=== PATIENT | female | born 1990 | race Caucasian/White ===

== ENCOUNTER 2017-08-26 19:15 | Emergency (ER) | payer OTHER ==
--- NOTE | 2017-08-26 19:21 | ED PDOC ---
Arrival/HPI - General Time Seen by Provider: 08/26/17 19:20 Historian: Patient - History of Present Illness Narrative History of Present Illness (Text): 08/26/17 19:21 26 y/o female, no significant pmh, nkda, c/o fever/nausea/vomiting/diarrhea with bodyache started today. Tmax 102F, no antipyretic taken for the past 8 hours, stated that she has nausea/vomiting with couple episodes of watery diarrhea with no abdominal pain, no cough,no palpitation, no recent traveling, no antibiotic use for the past 6 weeks, no numbness or tingling, no numbness or tingling, no other medical or psychological complaints. Past Medical History - Provider Review Nursing Documentation Reviewed: Yes Family/Social History - Physician Review Nursing Documentation Reviewed: Yes Family/Social History: Unknown Family HX Allergies/Home Meds Allergies/Adverse Reactions: Allergies No Known Allergies Allergy (Verified 08/26/17 19:22) Review of Systems - Review of Systems Constitutional: absent: Fatigue, Fevers Eyes: absent: Vision Changes ENT: absent: Hearing Changes Respiratory: absent: SOB, Cough Cardiovascular: absent: Chest Pain Gastrointestinal: Diarrhea, Nausea, Vomiting. absent: Abdominal Pain Skin: absent: Rash, Pruritis Neurological: absent: Headache Psychiatric: absent: Anxiety, Depression Physical Exam Vital Signs Reviewed: Yes Vital Signs Temp Pulse Resp BP Pulse Ox 08/26/17 23:17 99.4 F 90 16 106/68 95 08/26/17 21:56 99 F 107 H 16 159/85 H 97 08/26/17 19:22 100 F H 112 H 18 107/71 Temperature: Afebrile Blood Pressure: Normal Pulse: Tachycardic Respiratory Rate: Normal Appearance: Positive for: Well-Appearing, Non-Toxic, Comfortable Pain Distress: Moderate Mental Status: Positive for: Alert and Oriented X 3 - Systems Exam Head: Present: Atraumatic, Normocephalic Pupils: Present: PERRL Extroacular Muscles: Present: EOMI Conjunctiva: Present: Normal Ears: Present: NORMAL TM, Normal Canal. No: Erythema Mouth: Present: Moist Mucous Membranes Pharnyx: No: ERYTHEMA, EXUDATE, TONSILS ENLARGED, Uvular Deviation Nose (External): Present: Atraumatic. No: Abrasion, Contusion Nose (Internal): Present: Normal Inspection, No Active Bleeding. No: Rhinorrhea , Septal Hematoma, Epistaxis Neck: Present: Normal Range of Motion, Trachea Midline. No: Meningeal Signs, MIDLINE TENDERNESS, Paraspinal Tenderness, Lymphadenopathy Respiratory/Chest: Present: Clear to Auscultation, Good Air Exchange. No: Respiratory Distress, Accessory Muscle Use Cardiovascular: Present: Regular Rate and Rhythm, Normal S1, S2. No: Murmurs Abdomen: Present: Normal Bowel Sounds. No: Tenderness, Distention, Peritoneal Signs, Rebound, Guarding, Scars Back: Present: Normal Inspection Upper Extremity: Present: Normal Inspection. No: Cyanosis, Edema Lower Extremity: Present: Normal Inspection. No: Edema Neurological: Present: GCS=15, Speech Normal, Motor Func Grossly Intact, Gait Normal, Memory Normal Skin: Present: Warm, Dry, Normal Color. No: Rashes Psychiatric: Present: Alert, Oriented x 3, Normal Insight, Normal Concentration Medical Decision Making ED Course and Treatment: 08/26/17 19:42 -Labs/rapid flu -IVF/tylenol -Observe and reassess 08/26/17 22:13 -Motrin and IVF ordered. 08/26/17 23:09 -Urine hcg negative -Labs are non-significant except mild hypokalemia with potassium chloride 20meq po ordered. -UA show no UTI -Rapid flu is negative but clinical suspicious is high, tamiflu ordered -Abdominal examination is soft with no tenderness or guarding. No neck pain or stiffness. -Discharge home with tamiflu, pepcid, zofran, bed rest, BRAT diet, follow up with your own pmd and GI within 2 days, return to the ER for any new or worsening signs or symptoms. - Lab Interpretations Lab Results: 08/26/17 20:00 08/26/17 20:00 Lab Results 08/26/17 20:00: WBC 6.5, RBC 4.96, Hgb 14.2, Hct 42.0, MCV 84.7, MCH 28.6, MCHC 33.8, RDW 13.1, Plt Count 304, MPV 9.7, Gran % 73.5 H, Lymph % (Auto) 20.0 L, Butts % (Auto) 5.8, Eos % (Auto) 0.5 L, Baso % (Auto) 0.2, Gran # 4.81, Lymph # 1.3, Butts # 0.4, Eos # 0.0, Baso # 0.01 08/26/17 20:00: Sodium 134, Potassium 3.5 L, Chloride 98, Carbon Dioxide 26, Anion Gap 14, BUN 16, Creatinine 0.6 L, Est GFR ( Amer) > 60, Est GFR ( Non-Af Amer) > 60, Random Glucose 114 H, Calcium 9.2, Total Bilirubin 0.6, AST 36, ALT 59 H, Alkaline Phosphatase 80, Total Protein 7.8, Albumin 4.3, Globulin 3.5, Albumin/Globulin Ratio 1.2 08/26/17 20:00: Urine Color Yellow, Urine Appearance Clear, Urine pH 7.5, Ur Specific [place] 1.020, Urine Protein Trace H, Urine Glucose (UA) Negative, Urine Ketones Negative, Urine Blood Negative, Urine Nitrate Negative, Urine Bilirubin Negative, Urine Urobilinogen 1.0 H, Ur Leukocyte Esterase Negative, Urine RBC 0 - 2, Urine WBC 1 - 3, Ur Epithelial Cells 0 - 2, Urine Bacteria Small 08/26/17 19:50: Influenza Typ A,B (EIA) Negative for flu a/b - Medication Orders Current Medication Orders: Discontinued Medications Acetaminophen (Tylenol 325mg Tab) 650 mg PO STAT STA Stop: 08/26/17 19:39 Last Admin: 08/26/17 20:15 Dose: 650 mg MAR Pain/Vitals Document 08/26/17 20:15 HI (Rec: 08/26/17 20:39 [facility] [id number]) Pain Reassessment Is This A Pain ReAssessment? No Sodium Chloride (Sodium Chloride 0.9%) 1,000 mls @ 999 mls/hr IV .Q1H1M STA Stop: 08/26/17 20:38 Last Admin: 08/26/17 20:15 Dose: 999 mls/hr eMAR Start Stop Document 08/26/17 20:15 HI (Rec: 08/26/17 20:39 [id number] Intravenous Solution Start Date 08/26/17 Start Time 20:15 Sodium Chloride (Sodium Chloride 0.9%) 500 mls @ 999 mls/hr IV .Q31M STA Stop: 08/26/17 22:40 Last Admin: 08/26/17 22:33 Dose: 999 mls/hr eMAR Start Stop Document 08/26/17 22:33 HI (Rec: 08/26/17 22:33 [facility] [id number]) Intravenous Solution Start Date 08/26/17 Start Time 22:33 Ibuprofen (Motrin Tab) 600 mg PO STAT STA Stop: 08/26/17 22:12 Last Admin: 08/26/17 22:33 Dose: 600 mg MAR Pain/Vitals Document 08/26/17 22:33 HI (Rec: 08/26/17 22:33 [facility] [id number]) Pain Reassessment Is This A Pain ReAssessment? No Oseltamivir Phosphate (Tamiflu Cap) 75 mg PO STAT STA PRN Reason: Protocol Stop: 08/26/17 20:44 Last Admin: 08/26/17 21:20 Dose: 75 mg Potassium Chloride (K-Dur 20 Meq Er Tab) 20 meq PO STAT STA Stop: 08/26/17 20:46 Last Admin: 08/26/17 21:20 Dose: 20 meq - PA / MANAGER TALENT / Resident Statement MD/DO has reviewed & agrees with the documentation as recorded. Disposition/Present on Arrival - Present on Arrival Any Indicators Present on Arrival: No History of DVT/PE: No History of Uncontrolled Diabetes: No Urinary Catheter: No History of Decub. Ulcer: No - Disposition Have Diagnosis and Disposition been Completed?: Yes Diagnosis: Nausea vomiting and diarrhea, Flu-like symptoms Disposition: HOME/ ROUTINE Disposition Time: 23:09 Patient Plan: Discharge Condition: IMPROVED Additional Instructions: -Discharge home with tamiflu, pepcid, zofran, bed rest, BRAT diet, follow up with your own pmd and GI within 2 days, return to the ER for any new or worsening signs or symptoms. Prescriptions: Famotidine [Pepcid] 20 mg PO BID #14 tab Ondansetron [Zofran] 4 mg PO Q8H #8 tab Oseltamivir Phosphate [Tamiflu] 75 mg PO BID #10 capsule Referrals: Jeremiah Arshad MD [Primary Care Provider] - Follow up with primary Ayo GALLARDO,MD Kay [Medical Doctor] - Follow up with primary Forms: WORK NOTE
[2017-08-26] MEDS ORDERED: Sodium Chloride 0.9% 1,000 ML IV STA (19:38)
[2017-08-26 20:23] LABS: BASO # 0.01 K/mm3 (0.0-2.0); BASO % 0.2 % (0.0-3.0); EOS % 0.5 % (1.5-5.0); GRAN # 4.81 (1.4-6.5); GRAN % 73.5 % (50.0-68.0); HEMOGLOBIN 14.2 g/dL (12.0-16.0); LYMPH # 1.3 (1.2-3.4); MEAN CELL VOLUME 84.7 fl (80.0-105.0); MEAN CORPUSCULAR HEMOGLOBIN 28.6 pg (25.0-35.0); MEAN CORPUSCULAR HGB CONC 33.8 g/dl (31.0-37.0); MEAN PLATELET VOLUME 9.7 fl (7.0-11.0); MONO # 0.4 (0.1-0.6); MONO % 5.8 % (1.0-6.0); RBC 4.96 10^6/uL (3.5-6.1); RED CELL DISTRIBUTION WIDTH 13.1 % (11.5-14.5); WHITE BLOOD COUNT 6.5 10^3/ul (4.5-11.0)
[2017-08-26 20:24] LABS: PH,URINE 7.5 (4.7-8.0); URINE BILIRUBIN NEGATIVE (NEGATIVE); URINE BLOOD NEGATIVE (NEGATIVE); URINE GLUCOSE (UA) NEGATIVE (NEGATIVE); URINE LEUKOCYTE ESTERASE NEGATIVE Leu/uL (NEGATIVE); URINE NITRATE NEGATIVE (NEGATIVE); URINE PROTEIN TRACE mg/dL (<30 mg/dL)
[2017-08-26 20:31] LABS: ALB/GLOB RATIO 1.2 (1.1-1.8); ALBUMIN 4.3 g/dL (3.0-4.8); ALT/SGPT 59 U/L (7-56); AST/SGOT 36 U/L (14-36); BLOOD UREA NITROGEN 16 mg/dL (7-21); CALCIUM 9.2 mg/dL (8.4-10.5); GFR AFRICAN-AMERICAN > 60; GFR NON-AFRICAN AMERICAN > 60
[2017-08-26 20:33] LABS: URINE APPEARANCE CLEAR (CLEAR); URINE COLOR YELLOW (YELLOW)
[2017-08-26] MEDS ORDERED: Potassium Chloride 20 mEq ER Tab PO STA (20:45)
[2017-08-26 20:54] LABS: URINE BACTERIA SMALL (NEG); URINE EPITHELIAL CELLS 0 - 2 /hpf (0-5); URINE RBC 0 - 2 /hpf (0-2)
[2017-08-26 21:57] VITALS: RESP 16
[2017-08-26] MEDS ORDERED: Sodium Chloride 0.9% 500 ML IV STA (22:10)
[2017-08-26 23:18] VITALS: BP 106/68; PULSE 90; TEMP 99.4; O2SAT 95
== END 2017-08-26 23:22 | disposition home or self-care (01) ==
LOC: ED 19:15
DX: J11.1 Influenza due to unidentified influenza virus with other respiratory manifestations (principal); R11.2 Nausea with vomiting, unspecified; R19.7 Diarrhea, unspecified
CPT/HCPCS: 80053; 81001; 85025; 87804; 99284; J7040

== ENCOUNTER 2017-09-25 11:28 | Emergency (ER) | payer OTHER ==
[2017-09-25 11:41] VITALS: TEMP 98.6; BMI 24.5
--- NOTE | 2017-09-25 12:13 | ED PDOC ---
Arrival/HPI - General Chief Complaint: Abdominal Pain Time Seen by Provider: 09/25/17 11:47 Historian: Patient - History of Present Illness Narrative History of Present Illness (Text): 09/25/17 12:12 Krystyna Brock is a 26 year old female (), with no significant past medical history, who presents to the emergency department with lower abdominal pain with associated diarrhea. Patient notes her last menstrual period was5 weeks ago. Patient describes her pain as a pressure. Patient denies any fever, chills, chest pain, shortness of breath, nausea, vomiting, back pain, neck pain , headache, dizziness or any other complaints. 09/25/17 13:24 Time/Duration: < week Symptom Onset: Gradual Symptom Course: Unchanged Activities at Onset: Light Context: Home Past Medical History - Provider Review Nursing Documentation Reviewed: Yes - Cardiac Hx Cardiac Disorders: No - Pulmonary Hx Respiratory Disorders: No - Neurological Hx Neurological Disorder: No - HEENT Hx HEENT Disorder: No - Renal Hx Renal Disorder: No - Endocrine/Metabolic Hx Endocrine Disorders: No - Hematological/Oncological Hx Blood Disorders: No - Integumentary Hx Dermatological Disorder: No - Musculoskeletal/Rheumatological Hx Musculoskeletal Disorders: No - Gastrointestinal Hx Gastrointestinal Disorders: No - Genitourinary/Gynecological Hx Genitourinary Disorders: No - Psychiatric Hx Psychophysiologic Disorder: No Hx Substance Use: No - Surgical History Hx Dilation and Curettage: Yes Family/Social History - Physician Review Nursing Documentation Reviewed: Yes Family/Social History: Unknown Family HX Smoking Status: Light Smoker < 10 Cigarettes Daily Hx Alcohol Use: Yes Hx Substance Use: No Allergies/Home Meds Allergies/Adverse Reactions: Allergies No Known Allergies Allergy (Verified 09/25/17 11:41) Home Medications: Home Meds Medication Instructions Recorded Confirmed No Known Home Med 09/25/17 09/25/17 Review of Systems - Physician Review All systems were reviewed & negative as marked: Yes - Review of Systems Constitutional: Normal Eyes: Normal ENT: Normal Respiratory: Normal. absent: SOB, Cough Cardiovascular: Normal. absent: Chest Pain Gastrointestinal: Abdominal Pain, Diarrhea. absent: Nausea, Vomiting Genitourinary Female: Normal. absent: Dysuria, Frequency, Hematuria, Urine Output Changes Musculoskeletal: Normal. absent: Back Pain, Neck Pain Skin: Normal. absent: Rash Neurological: Normal. absent: Headache, Dizziness Endocrine: Normal Hemo/Lymphatic: Normal Psychiatric: Normal Physical Exam Vital Signs Temp Pulse Resp BP Pulse Ox 09/25/17 13:19 86 18 112/65 100 09/25/17 11:41 98.6 F 106 H 19 124/72 98 09/25/17 11:39 98.6 F 106 H 19 124/72 98 Temperature: Afebrile Blood Pressure: Normal Pulse: Tachycardic Respiratory Rate: Normal Appearance: Positive for: Well-Appearing, Non-Toxic, Comfortable Pain Distress: None Mental Status: Positive for: Alert and Oriented X 3 - Systems Exam Head: Present: Atraumatic, Normocephalic Pupils: Present: PERRL Extroacular Muscles: Present: EOMI Conjunctiva: Present: Normal Mouth: Present: Moist Mucous Membranes Neck: Present: Normal Range of Motion Respiratory/Chest: Present: Clear to Auscultation, Good Air Exchange. No: Respiratory Distress, Accessory Muscle Use Cardiovascular: Present: Regular Rate and Rhythm, Normal S1, S2. No: Murmurs Abdomen: Present: Tenderness (rigth adnexal tenderness), Normal Bowel Sounds. No: Distention, Peritoneal Signs Back: Present: Normal Inspection Upper Extremity: Present: Normal Inspection. No: Cyanosis, Edema Lower Extremity: Present: Normal Inspection. No: Edema Neurological: Present: GCS=15, CN II-XII Intact, Speech Normal Skin: Present: Warm, Dry, Normal Color. No: Rashes Psychiatric: Present: Alert, Oriented x 3, Normal Insight, Normal Concentration Medical Decision Making ED Course and Treatment: 09/25/17 12:21 Impression: 26 year old female presents to the emergency department with lower abdominal pain with diarrhea. pt found to be ucg pos in er. Plan: -- US transvaginal -- Beta HCG -- Labs -- HCG Qualitative Urine, Urinalysis -- Reassess and disposition Prior Visits: Notes and results from previous visits were reviewed. Patient was last seen in the emergency department on 08/26/17 for Nausea, vomiting, diarrhea. Patient was discharged home. Progress Notes: 09/25/17 13:17 UTERUS: Single Live intrauterine gestation. Yolk sac is visualized. pole is not identified on the current examination. Gestational sac diameter measures 0.76 cm too small to estimate gestational age. Dianelys-gestational hemorrhage: None. Uterus measures 7.0 x 5.0 x 5.3 cm. No mass CERVIX: Long and closed. No cervical abnormality seen. RIGHT OVARY: Measures 2.9 x 1.8 x 2.6 cm. No mass. Normal flow. There is a 1.5 cm simple cyst. LEFT OVARY: Measures 2.4 x 1.5 x 1.9 cm. No mass. Normal flow. FREE FLUID: None. OTHER FINDINGS: None. IMPRESSION: Single intrauterine gestational sac too small to estimate gestational age. Yolk sac is visualized. pole is not identified on the current examination. Clinical and imaging follow-up is recommended to confirm viability. US transvaginal reviewed, shows: 09/25/17 13:24 pt reassesed. no rlq ttp . labs unremarkable. case disccussed with dr doty. advises pt can follow up outpt. pt given strict return precautions. suspect eearly preg - Lab Interpretations Lab Results: 09/25/17 12:15 09/25/17 12:15 Lab Results 09/25/17 12:15: Blood Type Pending, Antibody Screen Pending, BBK History Checked No verified bt 09/25/17 12:15: Beta HCG, Quant 6814.00 H 09/25/17 12:15: Sodium 140, Potassium 3.6, Chloride 104, Carbon Dioxide 24, Anion Gap 16, BUN 9, Creatinine 0.6 L, Est GFR ( Amer) > 60, Est GFR (Non -Af Amer) > 60, Random Glucose 121 H, Calcium 9.5, Total Bilirubin 0.4, AST 25, ALT 41, Alkaline Phosphatase 62, Total Protein 7.5, Albumin 4.1, Globulin 3.4, Albumin/Globulin Ratio 1.2 09/25/17 12:15: Urine Color Yellow, Urine Appearance Clear, Urine pH 6.5, Ur Specific [place] <= 1.005, Urine Protein Negative, Urine Glucose (UA) Negative, Urine Ketones Negative, Urine Blood Negative, Urine Nitrate Negative, Urine Bilirubin Negative, Urine Urobilinogen 0.2, Ur Leukocyte Esterase Small H, Urine RBC Negative, Urine WBC 1 - 3, Ur Epithelial Cells 3 - 4, Urine Bacteria Few, Urine HCG, Qual Positive 09/25/17 12:15: PT 12.3, INR 1.07, APTT 32.0 09/25/17 12:15: WBC 7.4, RBC 4.94, Hgb 14.3, Hct 41.7, MCV 84.4, MCH 28.9, MCHC 34.3, RDW 13.7, Plt Count 309, MPV 9.7, Gran % 52.7, Lymph % (Auto) 37.9 H, [place] % (Auto) 5.8, Eos % (Auto) 3.3, Baso % (Auto) 0.3, Gran # 3.89, Lymph # ( Auto) 2.8, [place] # (Auto) 0.4, Eos # (Auto) 0.2, Baso # (Auto) 0.02 - RAD Interpretation Radiology Orders: 09/25/17 12:09 OB TRANSVAGINAL [US] Stat - Scribe Statement The provider has reviewed the documentation as recorded by the Scribe Taryn Garcia All medical record entries made by the Scribe were at my direction and personally dictated by me. I have reviewed the chart and agree that the record accurately reflects my personal performance of the history, physical exam, medical decision making, and the department course for this patient. I have also personally directed, reviewed, and agree with the discharge instructions and disposition. Disposition/Present on Arrival - Present on Arrival Any Indicators Present on Arrival: No History of DVT/PE: No History of Uncontrolled Diabetes: No Urinary Catheter: No History of Decub. Ulcer: No History Surgical Site Infection Following: None - Disposition Have Diagnosis and Disposition been Completed?: Yes Diagnosis: Ovarian cyst, Abdominal pain, Threatened miscarriage Disposition: HOME/ ROUTINE Disposition Time: 13:26 Condition: STABLE Discharge Instructions (ExitCare): Ovarian Cysts, Acute Abdomen (Belly Pain), Adult (DC), Threatened Miscarriage Additional Instructions: return to er with worsening symptoms or concerns. Referrals: PCP,NO [Primary Care Provider] - Follow up with primary Tanika Calero MD [Medical Doctor] - Follow up with primary Forms: [employer] ([place])
[2017-09-25 12:36] LABS: BASO # 0.02 K/mm3 (0.0-2.0); BASO % 0.3 % (0.0-3.0); EOS # 0.2 (0.0-0.7); EOS % 3.3 % (1.5-5.0); GRAN # 3.89 (1.4-6.5); GRAN % 52.7 % (50.0-68.0); HEMOGLOBIN 14.3 g/dL (12.0-16.0); LYMPH # 2.8 (1.2-3.4); LYMPH % 37.9 % (22.0-35.0); MEAN CELL VOLUME 84.4 fl (80.0-105.0); MEAN CORPUSCULAR HEMOGLOBIN 28.9 pg (25.0-35.0); MEAN CORPUSCULAR HGB CONC 34.3 g/dl (31.0-37.0); MEAN PLATELET VOLUME 9.7 fl (7.0-11.0); MONO # 0.4 (0.1-0.6); MONO % 5.8 % (1.0-6.0); RBC 4.94 10^6/uL (3.5-6.1); RED CELL DISTRIBUTION WIDTH 13.7 % (11.5-14.5); WHITE BLOOD COUNT 7.4 10^3/ul (4.5-11.0)
[2017-09-25 12:37] LABS: PH,URINE 6.5 (4.7-8.0); URINE APPEARANCE CLEAR (CLEAR); URINE BILIRUBIN NEGATIVE (NEGATIVE); URINE BLOOD NEGATIVE (NEGATIVE); URINE COLOR YELLOW (YELLOW); URINE GLUCOSE (UA) NEGATIVE (NEGATIVE); URINE LEUKOCYTE ESTERASE SMALL Leu/uL (NEGATIVE); URINE NITRATE NEGATIVE (NEGATIVE); URINE PROTEIN NEGATIVE mg/dL (<30 mg/dL); URINE UROBILINOGEN 0.2 E.U./dL (<1 E.U./dL)
[2017-09-25 12:39] LABS: HCG,QUALITATIVE URINE POSITIVE (NEGATIVE)
[2017-09-25 12:41] LABS: INR 1.07 (0.93-1.08); PROTHROMBIN TIME 12.3 SECONDS (9.4-12.5)
[2017-09-25 12:51] LABS: URINE BACTERIA FEW (NEG); URINE RBC NEGATIVE /hpf (0-2)
[2017-09-25 12:53] LABS: ALB/GLOB RATIO 1.2 (1.1-1.8); ALBUMIN 4.1 g/dL (3.0-4.8); ALT/SGPT 41 U/L (7-56); AST/SGOT 25 U/L (14-36); BLOOD UREA NITROGEN 9 mg/dL (7-21); CALCIUM 9.5 mg/dL (8.4-10.5); GFR AFRICAN-AMERICAN > 60; GFR NON-AFRICAN AMERICAN > 60
--- NOTE | 2017-09-25 13:12 | US ---
PROCEDURE: OB Pelvic Ultrasound HISTORY: Abdominal pain and COMPARISON: None available. FINDINGS: UTERUS: Single Live intrauterine gestation. Yolk sac is visualized. pole is not identified on the current examination. Gestational sac diameter measures 0.76 cm too small to estimate gestational age. Dianelys-gestational hemorrhage: None. Uterus measures 7.0 x 5.0 x 5.3 cm. No mass CERVIX: Long and closed. No cervical abnormality seen. RIGHT OVARY: Measures 2.9 x 1.8 x 2.6 cm. No mass. Normal flow. There is a 1.5 cm simple cyst. LEFT OVARY: Measures 2.4 x 1.5 x 1.9 cm. No mass. Normal flow. FREE FLUID: None. OTHER FINDINGS: None. IMPRESSION: Single intrauterine gestational sac too small to estimate gestational age. Yolk sac is visualized. pole is not identified on the current examination. Clinical and imaging follow-up is recommended to confirm viability.
[2017-09-25 13:19] VITALS: BP 112/65; PULSE 86; RESP 18; O2SAT 100
== END 2017-09-25 14:01 | disposition home or self-care (01) ==
LOC: ED 11:28
DX: O20.0 Threatened abortion (principal); O34.80 Maternal care for other abnormalities of pelvic organs, unspecified trimester; N83.201 Unspecified ovarian cyst, right side; Z3A.00 Weeks of gestation of pregnancy not specified